=== PATIENT | female | born 1985 | race Caucasian/White ===

== ENCOUNTER 2017-04-11 17:58 | Emergency (ER) | payer OTHER ==
[~2017-04-11] VITALS: Ht 160 cm; Wt 79.2 kg
[2017-04-11 18:02] VITALS: TEMP 36.7; Ht 160 cm; Wt 79.2 kg
[2017-04-11] MEDS ORDERED: PRENTAB26 PO (18:53)
[2017-04-11 19:01] LABS: BASO % 0.3 %; BASO ABS # 0.03 K/uL (0-0.2); COMPLETE YES; EOS % 1.3 %; IG% 0.6 %; LYMPH % 28.8 %; LYMPH ABS # 2.58 K/uL (1.2-3.4); MEAN CELL VOLUME 87.4 fL (80-100); MEAN CORPUSCULAR HEMOGLOBIN 29.2 pg (25-34); MEAN CORPUSCULAR HGB CONC 33.4 g/dl (32-36); MEAN PLATELET VOLUME 10.6 fL (7.4-10.4); MONO % 9.3 %; NEUT % 59.7 %; PLATELET COUNT 205 K/uL (130-400); RED BLOOD COUNT 3.66 M/uL (4.2-5.4); WHITE BLOOD COUNT 8.97 K/uL (4.8-10.8)
[2017-04-11 19:18] LABS: BUN/CREATININE RATIO 16.2 (10-20); CREATININE 0.52 mg/dl (0.60-1.20); POTASSIUM 3.6 mmol/L (3.5-5.1)
--- NOTE | 2017-04-11 19:31 | DIAGNOSTIC IMAGING REPORT ---
BILATERAL LOWER EXTREMITY VENOUS DOPPLER CLINICAL HISTORY: Bilateral lower external pain and swelling. COMPARISON STUDY: No previous studies for comparison. TECHNIQUE: Sonography of the deep venous system of the bilateral lower extremities was performed. Compression and augmentation were evaluated. FINDINGS: The bilateral common femoral, superficial femoral and popliteal veins were compressible. Augmentation was normal. Flow was shown within the deep calf vessels. IMPRESSION: No evidence of deep venous thrombus within the bilateral lower extremities. Electronically signed by: Edgar Lyon M.D. 04/11/2017 7:29 PM Dictated Date/Time: 04/11/2017 7:29 PM
--- NOTE | 2017-04-11 19:36 | EMERGENCY ROOM VISIT NOTE ---
ED Visit Note First contact with patient: 18:09 CHIEF COMPLAINT: Leg swelling and pain HISTORY OF PRESENT ILLNESS: This 31-year-old female patient presents to the emergency department with concern of bilateral lower extremity swelling and left leg pain that started yesterday. The pain and swelling have developed gradually. There has been no injury to the leg, no fever, and no unusual activity which may have strained a muscle recently. There has not been a long period of immobilization or long car or plane ride recently. There is no history of blood clots in the veins of the legs. The patient is currently 35 weeks , states she has had some mild swelling in the legs for the past several weeks, but not this significant. She denies any chest pain, shortness of breath, palpitations, dizziness or syncope. She reports that she has been feeling the baby moving normally. REVIEW OF SYSTEMS: Head: No headache, injury or neck pain. Neurological: No headache, new changes in mental status, vertigo, focal weakness, numbness. Cardiac: No chest pain, diaphoresis, dyspnea on exertion, orthopnea, or palpitations. Respiratory: No cough, change in sputum, wheezes, hemoptysis, shortness of breath, or stridor. Gastrointestinal: No abdominal pain, blood in stools, diarrhea, loss of appetite, nausea, or vomiting. General: No fever or chills, fatigue, loss of appetite, or significant recent weight gain or loss. PMH: The patient is healthy; there is no significant medical or surgical history. SOCIAL HISTORY: Patient lives at home. She denies tobacco use, alcohol or recreational drug use. PHYSICAL EXAM: Vital Signs: Reviewed Nurse's notes. HEART: Regular rate and rhythm without murmurs, ectopy, gallops, or rubs. LUNGS: Clear to auscultation and breath sounds equal, no wheezes, rales, or rhonchi. ABDOMEN: Soft, non- tender, no hepatosplenomegaly, or masses. NEUROLOGICAL: Alert oriented, coheent. PRERL, EOMs full, gait normal. EXTREMITIES: No cyanosis, edema, joint tenderness or effusion. Pulses equal bilaterally. There is swelling of both calves and tenderness of the left calf. No erythema or warmth to palpation. No cords can be palpated and Gabrielle's sign is negative. There is no lymphangitic streaking. EMERGENCY DEPARTMENT COURSE: I examined the patient. Differential diagnosis includes DVT, leg swelling associated with , electrolyte imbalance. Labs show mild anemia which is consistent with , no other acute abnormalities. Ultrasound exam of the bilateral legs does not show any evidence of deep venous thrombosis or other abnormality. Patient was updated on all results and plan for discharge. She was encouraged to follow up with her PCP/OB provider. She was also given return precautions should her symptoms worsen, she verbalized understanding. The patient was discharged home in stable condition and ambulatory. Current/Historical Medications Scheduled Multivit/Min/Iron/Fol Ac/Pren ( Vitamin), 1 TAB PO BID Allergies Coded Allergies: No Known Allergies (Unverified , 04/11/17) Vital Signs Date Time Temp Pulse Resp B/P (MAP) Pulse Ox O2 Delivery O2 Flow Rate FiO2 04/11/17 20:07 80 18 124/69 96 04/11/17 18:02 36.7 89 18 134/88 97 Room Air Laboratory Results 04/11/17 18:45 Red Blood Count 3.66, Mean Corpuscular Volume 87.4, Mean Corpuscular Hemoglobin 29.2, Mean Corpuscular Hemoglobin Concent 33.4, Mean Platelet Volume 10.6, Neutrophils (%) (Auto) 59.7, Lymphocytes (%) (Auto) 28.8, Monocytes (%) (Auto) 9.3, Eosinophils (%) (Auto) 1.3, Basophils (%) (Auto) 0.3, Neutrophils # (Auto) 5.36, Lymphocytes # (Auto) 2.58, Monocytes # (Auto) 0.83, Eosinophils # (Auto) 0.12, Basophils # (Auto) 0.03 04/11/17 18:45 Test 04/11/17 18:45 White Blood Count 8.97 K/uL (4.8-10.8) Red Blood Count 3.66 M/uL (4.2-5.4) Hemoglobin 10.7 g/dL (12.0-16.0) Hematocrit 32.0 % (37-47) Mean Corpuscular Volume 87.4 fL (80-100) Mean Corpuscular Hemoglobin 29.2 pg (25-34) Mean Corpuscular Hemoglobin Concent 33.4 g/dl (32-36) Platelet Count 205 K/uL (130-400) Mean Platelet Volume 10.6 fL (7.4-10.4) Neutrophils (%) (Auto) 59.7 % Lymphocytes (%) (Auto) 28.8 % Monocytes (%) (Auto) 9.3 % Eosinophils (%) (Auto) 1.3 % Basophils (%) (Auto) 0.3 % Neutrophils # (Auto) 5.36 K/uL (1.4-6.5) Lymphocytes # (Auto) 2.58 K/uL (1.2-3.4) Monocytes # (Auto) 0.83 K/uL (0.11-0.59) Eosinophils # (Auto) 0.12 K/uL (0-0.5) Basophils # (Auto) 0.03 K/uL (0-0.2) RDW Standard Deviation 42.5 fL (36.4-46.3) RDW Coefficient of Variation 13.2 % (11.5-14.5) Immature Granulocyte % (Auto) 0.6 % Immature Granulocyte # (Auto) 0.05 K/uL (0.00-0.02) Anion Gap 9.0 mmol/L (3-11) Est Creatinine Clear Calc Drug Dose 157.6 ml/min Estimated GFR () 148.6 Estimated GFR (Non- 128.2 BUN/Creatinine Ratio 16.2 (10-20) Calcium Level 9.0 mg/dl (8.5-10.1) Departure Information Impression Primary Impression: Swelling of both lower extremities Dispostion Home / Self-Care Condition GOOD (due to due do) Referrals No Doctor, Assigned (PCP) Patient Instructions ED Leg Swelling Bilateral, My [facility] Additional Instructions You have been evaluated in the emergency department today for your leg pain and swelling. Ultrasound studies of your legs are negative for any blood clots. Stay off of your legs as much as possible and keep them elevated to help reduce swelling. Apply heat to the swollen, sore area frequently over the next 2 days. Gentle stretches to the leg for comfort. You may also try wearing compression stockings to legs. She put these on first thing in the morning when her swelling has gone down, and wear them throughout the day to help reduce swelling in your legs. Tylenol as needed for pain. Take as directed. Follow-up with her PCP or [employer] doctor if the symptoms do not improve. Please return to the emergency department for wrestling symptoms, including severe pain, increased swelling, red or hot to the touch, fevers/chills, or any other concerns.
[2017-04-11 20:07] VITALS: BP 124/69; PULSE 80; O2SAT 96
== END 2017-04-11 20:08 | disposition home or self-care (01) ==
LOC: C.EDB 17:59
DX: R60.0 Localized edema (principal); M79.605 Pain in left leg; Z33.1 Pregnant state, incidental

== ENCOUNTER 2017-04-14 12:58 | Outpatient (CLI) | payer OTHER ==
[~2017-04-14 12:58] MED LIST: PRENTAB26 PO
== END 2017-04-14 13:50 | disposition home or self-care (01) ==
LOC: C.LD 12:58 → C.OPB 12:58
PROVIDERS: ATTEND Obstetrics & Gynecology
DX: O36.8130 Decreased fetal movements, third trimester, not applicable or unspecified (principal); Z3A.00 Weeks of gestation of pregnancy not specified

== ENCOUNTER 2017-04-27 00:59 | Outpatient (CLI) | payer OTHER ==
[~2017-04-27] VITALS: Ht 160 cm; Wt 90.0 kg
[2017-04-27 03:51] VITALS: Ht 160 cm; Wt 90.0 kg
[2017-04-27] MEDS ORDERED: SERT25TA PO (03:53)
[2017-04-27] MEDS ORDERED: MoRPHine SULFATE 10 MG/ML CARP/VIAL SQ STA (04:29)
[2017-04-27] MEDS ORDERED: LACTATED RINGER'S 1000ML 1,000 ML IV SCH ×2 (04:30→04:45)
--- NOTE | 2017-04-27 06:35 | Discharge Instructions ---
Discharge Instructions Date of Service Apr 27, 2017. Admission Reason for Admission: Check Labor Discharge Discharge Diagnosis / Problem: Postcoital contractions Discharge Goals Goal(s): Continuing OB care Activity Recommendations Activity Limitations: as noted below Lifting Limitations: no more than 10 pounds Exercise/Sports Limitations: until after follow-up appointment May Resume Sexual Activity: after follow-up appointment Shower/Bathe: no limitations Driving or Machine Use: no limitations SPECIAL CARE INSTRUCTIONS: Call Doctor if: * Regular contractions every 5 minutes or greater than 5 contractions in one hour. * Bleeding * Water breaks or is leaking * Decreased movement * Fever >100.4 degrees F * Pain not relieved by routine measures or pain medication ordered. FOLLOW UP VISIT: Return to Labor and Delivery on for /call for appointment time . Follow-up Visit with: When: . Current Hospital Diet Patient's current hospital diet: Discharge Diet Recommended Diet: Regular Diet Pending Studies Studies pending at discharge: no Work Instructions Return To Work: 3 days Lifting Limitations: no more than 10 pounds Medical Emergencies . Who to Call and When: Medical Emergencies: If at any time you feel your situation is an emergency, please call 911 immediately. . Non-Emergent Contact Non-Emergency issues call your: Surgeon, Specialist Call Non-Emergent contact if: temperature is above 100.5, your pain is not controlled, your pain is worsening . . "Provider Documentation" section prepared by Lance Mcintosh. . VTE Core Measure Inpt VTE Proph given/why not?: Treatment not indicated
== END 2017-04-27 07:41 | disposition home or self-care (01) ==
LOC: C.OPB 00:59 → C.LD 01:00 → C.OPB 07:41
PROVIDERS: ATTEND Obstetrics & Gynecology
DX: O62.9 Abnormality of forces of labor, unspecified (principal); O99.343 Other mental disorders complicating pregnancy, third trimester; F32.9 Major depressive disorder, single episode, unspecified; Z3A.37 37 weeks gestation of pregnancy

== ENCOUNTER 2017-05-06 01:42 | Inpatient (IN) | payer OTHER ==
[~2017-05-06] VITALS: Ht 160 cm; Wt 79.4 kg
[~2017-05-06 01:42] MED LIST changes: +SERT25TA PO
[2017-05-06] MEDS ORDERED: LACTATED RINGER'S 1000ML 1,000 ML IV PRN (02:12)
[2017-05-06] MEDS ORDERED: LACTATED RINGER'S 1000ML 1,000 ML IV SCH (02:12)
[2017-05-06 02:29] VITALS: Ht 160 cm; Wt 79.4 kg
[2017-05-06 02:35] LABS: HEMATOCRIT 33.6 % (37-47); MEAN CELL VOLUME 86.8 fL (80-100); MEAN CORPUSCULAR HEMOGLOBIN 28.9 pg (25-34); MEAN CORPUSCULAR HGB CONC 33.3 g/dl (32-36); PLATELET COUNT 210 K/uL (130-400); RED BLOOD COUNT 3.87 M/uL (4.2-5.4); WHITE BLOOD COUNT 9.72 K/uL (4.8-10.8)
[2017-05-06] MEDS ORDERED: BUPIVACAINE 0.25% 30 ML VIAL ONE (02:35)
[2017-05-06] MEDS ORDERED: FENTANYL CITRATE INJ 50 MCG/1 ML 2 ML VIAL ONE (02:36)
[2017-05-06] MEDS ORDERED: EpHEDrine SULFATE INJ 50 MG/ML AMP ONE (02:36)
[2017-05-06] MEDS ORDERED: FENTANYL 2MCG/ML ROPIV 1.25MG/ML 100ML BAG EPI ONE (02:36)
[2017-05-06] MEDS ORDERED: BUTORPHANOL TARTRATE 1 MG/ML VIAL ONE (03:02)
[2017-05-06] MEDS ORDERED: BUTORPHANOL TARTRATE 1 MG/ML VIAL IV PRN (03:15)
[2017-05-06] MEDS ORDERED: NALOXONE HCL INJ 1 MG in SODIUM CHLORIDE 0.9% 1000ML 1,000 ML IV PRN (04:49)
[2017-05-06] MEDS ORDERED: LACTATED RINGER'S 1000ML 500 ML IV PRN ×2 (04:49→07:15)
[2017-05-06] MEDS ORDERED: DiphenhydrAMINE HCL 50 MG/ML VIAL IV PRN (05:00)
[2017-05-06] MEDS ORDERED: EpHEDrine SULFATE INJ 50 MG/ML AMP IV PRN (05:00)
[2017-05-06] MEDS ORDERED: ONDANSETRON INJ 2 MG/ML 2 ML VIAL IV PRN (05:00)
[2017-05-06] MEDS ORDERED: NALOXONE HCL INJ 0.4 MG/1 ML VIAL/CARP IV PRN (05:00)
[2017-05-06] MEDS ORDERED: NALBUPHINE HCL INJ 10 MG/ML AMP IV PRN (05:00)
[2017-05-06] MEDS ORDERED: FENTANYL 2MCG/ML ROPIV 1.25MG/ML 100ML BAG EPI PRN (05:00)
[2017-05-06] MEDS ORDERED: OXYTOCIN 30 UNITS/500ML NSS IV PRN ×2 (07:15→10:15)
[2017-05-06] MEDS ORDERED: ACETAMINOPHEN 325 MG TAB PO PRN (10:15)
[2017-05-06] MEDS ORDERED: LANOLIN OINT EXT PRN ×2 (10:15)
[2017-05-06] MEDS ORDERED: SUPERCREAM 0.870 % 15GM JAR EXT PRN (10:15)
[2017-05-06] MEDS ORDERED: ACETAMINOPHEN/CODEINE 300/30MG TAB PO PRN ×2 (10:15)
[2017-05-06] MEDS ORDERED: HYDROCORTISONE ACETATE 25 MG SUPP PR PRN (10:15)
[2017-05-06] MEDS ORDERED: BENZOCAINE 20% AER SPR 82.5 GM CAN EXT PRN (10:15)
[2017-05-06] MEDS ORDERED: OXYCODONE/ACETAMINOPHEN 5-325 TAB PO PRN (10:15)
--- NOTE | 2017-05-06 10:56 | DELIVERY SUMMARY ---
DATE OF OPERATION: 05/06/2017 DELIVERY NOTE The patient delivered a live male in left occiput anterior presentation. The was delivered as a compound presentation as well with the right. was delivered and placed on the mother's abdomen. Cord was clamped and cut after 2 minutes. Cord gases obtained. Cord blood was obtained. Placenta was spontaneously delivered. Inspection of the placenta showed a 3-vessel cord and appeared grossly normal. Inspection of the perineum showed a second-degree midline laceration as well as a right vulvar tear. Both were repaired with 2-0 and 3-0 Vicryl in layers. Rectal exam post repair showed good sphincter tone. No sutures are palpated in the rectum. ESTIMATED BLOOD LOSS: 400 mL. All instruments are removed from the vagina and accounted for x2 including sponges, needles and retractors. Baby and mother are doing well. The 's weight and Apgars are in the pediatric records. I attest to the content of the Intraoperative Record and any orders documented therein. Any exception s are noted below.
[2017-05-06 13:00] VITALS: BP 131/81; PULSE 82; TEMP 36.7
[2017-05-06 15:25] VITALS: BP 103/64; PULSE 70; TEMP 36.8
[2017-05-06] MEDS: IBUPROFEN 600 MG TAB PO PRN (17:48)
[2017-05-06 19:45] VITALS: BP 125/74; PULSE 74; TEMP 36.7; O2SAT 97
[2017-05-06] MEDS: DOCUSATE SODIUM 100 MG CAP PO SCH (19:49)
[2017-05-06 23:00] VITALS: BP 125/82; PULSE 65; TEMP 36.4; O2SAT 98
[2017-05-07 03:45] VITALS: BP 110/74; PULSE 75; TEMP 36.7; O2SAT 96
[2017-05-07] MEDS: IBUPROFEN 600 MG TAB PO PRN ×3 (03:51→19:37)
--- NOTE | 2017-05-07 07:06 | HISTORY & PHYSICAL EXAMINATION ---
DATE OF ADMISSION: 05/06/2017 HISTORY OF PRESENT ILLNESS: This is a 31-year-old G3, P2, EDC is 05/12/2017, making her 39 weeks and 1 day today, presented to labor and delivery with contractions. She was examined by nurse and found to be 4 cm dilated. She was, therefore, admitted for labor. On arrival, she had no shortness of breath, no chills, no fever, no rupture of membranes, no bloody show. COURSE: Has been unremarkable. LABORATORY DATA: Blood type A positive, antibody negative, rubella immune, GBS negative. PAST MEDICAL HISTORY: None. PAST SURGICAL HISTORY: None. SOCIAL HISTORY: The patient denied tobacco, drug or alcohol use. OBSTETRICAL/GYNECOLOGIC HISTORY: The patient delivered a live in ____ and in 03/2013. FAMILY HISTORY: Noncontributory. PHYSICAL EXAMINATION: GENERAL: Well-developed, well-nourished white female in labor discomfort. HEART: S1, S2, regular rhythm and rate. LUNGS: Clear to auscultation bilaterally. ABDOMEN: Gravid. EXTREMITIES: No cyanosis, clubbing or edema. PELVIC: On admission, was 4 cm dilated. ASSESSMENT AND PLAN: A 31-year-old G3, P2, at 39+ weeks, in labor. The patient is admitted and we anticipate vaginal delivery.
[2017-05-07 07:29] VITALS: BP 109/72; PULSE 70; TEMP 36.6; O2SAT 97
--- NOTE | 2017-05-07 07:36 | OB/GYN Progress Note ---
REGIONAL FACILITIES MANAGER Progress Note Date of Service May 07, 2017. Subjective conversation w/ patient Ambulation: ambulating normally Voiding: no voiding problems Passing Gas: Yes Diet Tolerance: Regular Diet Lochia: Small Feeding Type: Breast Feeding Pain: 09/29 Notes: Doing well, no concerns. Pain well controlled. Tolerating regular diet, +flatus , -BM. Ambulating without difficulty. Lochia decreasing. Objective Vital Signs Date Time Temp Pulse Resp B/P (MAP) Pulse Ox O2 Delivery O2 Flow Rate FiO2 05/07/17 07:29 36.6 70 20 109/72 (84) 97 Room Air 05/07/17 03:45 36.7 75 18 110/74 (86) 96 Room Air 05/06/17 23:00 Room Air 05/06/17 23:00 36.4 65 16 125/82 (96) 98 Room Air 05/06/17 19:45 36.7 74 16 125/74 (91) 97 Room Air 05/06/17 19:45 Room Air 05/06/17 15:25 Room Air 05/06/17 15:25 36.8 70 18 103/64 (77) Room Air 05/06/17 13:00 36.7 82 20 131/81 (98) Physical Exam General Appearance: WELL-APPEARING Respiratory/Chest: chest non-tender Cardiovascular: regular rate, rhythm Abdomen: normal bowel sounds, soft Fundus: Firm Extremities: normal range of motion, non-tender Laboratory Results Last 24 Hours Test 05/07/17 05:58 Hemoglobin 10.2 g/dL Hematocrit 31.0 % Assessment and Plan Post- Day Number: 1 Continue Routine Care: -Continue routine care -Anticipate d/c home tomorrow
[2017-05-07] MEDS: FERROUS SULFATE 325 MG TAB PO SCH (08:18)
[2017-05-07] MEDS: PRENATAL VITAMIN TAB PO SCH (08:18)
[2017-05-07] MEDS: DOCUSATE SODIUM 100 MG CAP PO SCH ×2 (08:18→19:37)
[2017-05-07] MEDS: SERTRALINE HCL 50 MG TAB PO SCH (08:34)
[2017-05-07 16:20] VITALS: BP 128/84; PULSE 72; TEMP 36.7; O2SAT 97
[2017-05-07 19:45] VITALS: BP 127/85; PULSE 80; TEMP 36.7; O2SAT 98
[2017-05-07] MEDS ORDERED: BISACODYL 5 MG TABEC PO SCH (20:00)
[2017-05-07 23:45] VITALS: BP 140/80; PULSE 78; TEMP 36.5
[2017-05-08 06:39] LABS: HEMATOCRIT 28.9 % (37-47); MEAN CELL VOLUME 88.1 fL (80-100); MEAN CORPUSCULAR HEMOGLOBIN 29.3 pg (25-34); MEAN CORPUSCULAR HGB CONC 33.2 g/dl (32-36); PLATELET COUNT 192 K/uL (130-400); RED BLOOD COUNT 3.28 M/uL (4.2-5.4); WHITE BLOOD COUNT 8.12 K/uL (4.8-10.8)
[2017-05-08] MEDS ORDERED: BISACODYL 10 MG SUPP PR PRN (07:00)
[2017-05-08] MEDS ORDERED: MTR600X PO (07:16)
--- NOTE | 2017-05-08 07:17 | Discharge Instructions ---
Discharge Instructions Date of Service May 08, 2017. Admission Reason for Admission: Check Labor Discharge Discharge Diagnosis / Problem: term pregnancyndelivered Discharge Goals Goal(s): Routine recovery after delivery Activity Recommendations Activity Limitations: as noted below Lifting Limitations: no more than 10 pounds Exercise/Sports Limitations: gradually increase as tolerated May Resume Sexual Activity: after follow-up appointment Shower/Bathe: no limitations Driving or Machine Use: resume 3 days after discharge . Instructions / Follow-Up Instructions / Follow-Up ACTIVITY RECOMMENDATIONS: * Gradual return to full activity over the next 2-3 weeks. * No lifting - nothing heavier than baby over the next 2-3 weeks. * Do not engage in vigorous exercise, sexual activity or sports until cleared by your physician. * Do not drive or operate any motorized equipment until cleared by your physician. * You may shower/bathe daily. BREAST CARE: If you are not breast feeding: * Wear a supportive bra 24 hours a day for one to two weeks. * Avoid stimulating your breasts and nipples as much as possible during the first few weeks after delivery. * When taking a shower, have the warm water hit your back, not breasts. * When your breasts feel full, apply ice packs. Usually three to four times a day helps ease the discomfort. * Take a mild pain medication (Tylenol/Motrin) when you are uncomfortable. If breast feeding: * Use breast milk to lubricate nipples. Lansinoh cream may be used for sore nipples. You do not need to remove cream prior to breast feeding. If using a different brand of cream, check the label for directions regarding removal of cream prior to nursing. * Wear a supportive bra. * If having problems with breasts or breast feeding, call a consultant luxury and auto. vice president [employer] (ex ) or your health care provider. EPISIOTOMY CARE: After delivery, if you have an episiotomy (stitches), the following steps will ease discomfort and aid healing. * For the first 24 hours after delivery, place ice packs next to your episiotomy to help reduce swelling. * After the first 24 hour-period, sitz baths, either portable or in the tub, are suggested. A shower with a shower arm sprayed over the episiotomy may be comforting. * Viki care should be done after each voiding and bowel movement. Squirt warm water from a plastic bottle over the perineum (region of the body between the anus and urinary opening) and pat dry. * Use Dermoplast to ease discomfort. Shake container. [place] directly over the episiotomy. * Place a Tucks on a clean sanitary pad next to your episiotomy. OVER THE COUNTER MEDICATION: * For discomfort or pain, you may use Acetaminophen (Tylenol), Ibuprofen (Advil ), or Naproxen (Aleve) following the package directions. * For constipation you may use Colace following the package directions. SPECIAL CARE INSTRUCTIONS: When you are discharged from the hospital, it is important for you to follow the instructions listed below: * During the first week at home, you should be able to care for yourself and your baby. In addition, the usual light household activities are encouraged. * Limit your activities to the way you feel. Do not try to clean the house or move furniture. Be sensible. * If you actively engage in sports and have done so up until the time of your delivery, you may resume these activities as soon as you feel able. This may take up to one month or even longer. Use good judgment. * Continue to take your vitamins for at least six weeks after the of your baby. * Your diet need not be limited unless you were on a special diet before your delivery. Breast-feeding mothers need around 2500 calories per day and at least 64-80 ounces of fluid per day (8 to 10 glasses). * You should eat foods from the four major food groups. Crash diets or fad diets are to be avoided. Eating lean meats, fresh fruits and vegetables, low-fat dairy products, high fiber foods and a regular exercise program, will help you get back to your pre- weight without putting your health at risk. * Constipation is sometimes a problem after delivery. Take a mild laxative as needed. If breast feeding, Milk of Magnesia is acceptable to use. You may use a suppository or Fleets enema if no episiotomy. * A daily shower or tub bath is suggested. Be sure to thoroughly and gently dry the perineum. * A bloody vaginal discharge will usually continue until around four weeks post . A small amount of bleeding may continue for as long as six weeks. Vaginal discharge changes from the bright red bleeding after delivery to pink then brownish and finally yellowish-pink before becoming white and disappearing. * Bleeding may increase with activity. Your first period may come in 4-8 weeks. If you are breast feeding, your period may be delayed even longer. * Reinholds (sex) can begin whenever both you and your partner feel comfortable and do not have any form of genital infection. It is recommended that you wait until after your return appointment and discuss with your physician. If you have questions, please talk to your health care practitioner. A condom should be used to prevent infection and . * Foreplay, gentle intercourse and lubrication is very important the first several times to prevent pain. A water-based lubricant such as K-Y jelly or Astroglide may be used. * Tampons may be used six weeks after delivery. * Douching should be avoided for 6 weeks after delivery. * If you have RH negative blood and your baby is RH positive, you will receive RHOGAM by injection prior to discharge. The nurse will give you a card to keep with you that has the date and place that you received RHOGAM after delivery. * During your care, you had a Rubella screen done to check for the presence of rubella antibodies in your blood. If your test was negative, you will receive a Rubella vaccine prior to discharge. This vaccine may cause a fever, soreness at the injection site and flu-like symptoms. If these symptoms persist, notify your health care practitioner. is not advised for three months after a Rubella vaccine. There is a higher chance of having a baby with defects if conceived within three months of getting the vaccine. * If you were discharged 24 hours from delivery or before 48 hours: Visiting nurses will come to your home 48 hours after discharge to assess you and your baby. The visiting nurse will meet with you while you are in the hospital to arrange a time and get directions to your home. * Verbalizes understanding of car seat law as reviewed with patient nursing. * Car Seat hand-out given and reviewed with patient by nursing. * Shaken baby information reviewed with patient by nursing. Call you doctor if: * Heavy bleeding (saturating several pads an hour) or passing clots the size of your fist. * A fever >101 degrees F (38.3 degrees C) on two occasions four hours apart and/or chills. * Unusual pain in the pelvic or vaginal areas. * "Baby Blues" lasting longer than two weeks. If you have any questions or concerns, call your health care practitioner at . FOLLOW-UP VISIT: * Please call the office at to schedule a 6 week examination. It is important you keep this appointment. * It is important for you to make arrangements for either yearly or twice yearly check-ups thereafter. Current Hospital Diet Patient's current hospital diet: Regular OB Diet Discharge Diet Recommended Diet: Regular OB Diet Pending Studies Studies pending at discharge: no Medical Emergencies . Who to Call and When: Medical Emergencies: If at any time you feel your situation is an emergency, please call 911 immediately. . Non-Emergent Contact Non-Emergency issues call your: Primary Care Provider . . "Provider Documentation" section prepared by Shekhar Garland. . VTE Core Measure Inpt VTE Proph given/why not?: SCD's
[2017-05-08 07:30] VITALS: BP 132/85; PULSE 74; TEMP 36.6; O2SAT 98
[2017-05-08 07:49] VITALS: BP 132/85; PULSE 80; TEMP 36.6; O2SAT 97
--- NOTE | 2017-05-08 08:11 | OB/GYN Progress Note ---
LAUNDRY CLERK Progress Note Date of Service May 08, 2017. Subjective conversation w/ patient, physical exam Ambulation: ambulating normally Voiding: no voiding problems Passing Gas: Yes Diet Tolerance: Regular Diet Lochia: Small Feeding Type: Breast Feeding Objective Vital Signs Date Time Temp Pulse Resp B/P (MAP) Pulse Ox O2 Delivery O2 Flow Rate FiO2 05/08/17 07:49 36.6 80 18 132/85 (101) 97 Room Air 05/08/17 07:30 98 Room Air 05/08/17 07:30 36.6 74 18 132/85 (101) 98 Room Air 05/07/17 23:45 Room Air 05/07/17 23:45 36.5 78 20 140/80 (100) Room Air 05/07/17 19:45 Room Air 05/07/17 19:45 36.7 80 18 127/85 (99) 98 Room Air 05/07/17 16:20 97 Room Air 05/07/17 16:20 36.7 72 18 128/84 (99) 97 Room Air Physical Exam General Appearance: WELL-APPEARING, NO APPARENT DISTRESS Abdomen: non tender, soft Fundus: Firm Extremities: non-tender, normal inspection, no pedal edema, no calf tenderness Laboratory Results Last 24 Hours Test 05/08/17 06:27 White Blood Count 8.12 K/uL Red Blood Count 3.28 M/uL Hemoglobin 9.6 g/dL Hematocrit 28.9 % Mean Corpuscular Volume 88.1 fL Mean Corpuscular Hemoglobin 29.3 pg Mean Corpuscular Hemoglobin Concent 33.2 g/dl RDW Standard Deviation 45.6 fL RDW Coefficient of Variation 14.3 % Platelet Count 192 K/uL Mean Platelet Volume 10.0 fL Assessment and Plan Post- Day Number: 2 Continue Routine Care: discharged
[2017-05-08] MEDS: FERROUS SULFATE 325 MG TAB PO SCH (08:12)
[2017-05-08] MEDS: PRENATAL VITAMIN TAB PO SCH (08:12)
[2017-05-08] MEDS: DOCUSATE SODIUM 100 MG CAP PO SCH (08:12)
[2017-05-08] MEDS: SERTRALINE HCL 50 MG TAB PO SCH (08:13)
[2017-05-08 10:50] VITALS: BP_DIAS 85; PULSE 80; TEMP 36.6
== END 2017-05-08 10:50 | disposition home or self-care (01) | DRG 775 ==
LOC: C.LD 01:42 → C.OPB 01:42 → C.LD 02:15 → C.OPB 02:15 → C.OBG 13:06
PROVIDERS: ADMIT Obstetrics & Gynecology; ATTEND Obstetrics & Gynecology
PROC: 10E0XZZ Delivery of Products of Conception, External Approach (ICD-10-PCS; principal; 2017-05-06)
PROC: 0KQM0ZZ Repair Perineum Muscle, Open Approach (ICD-10-PCS; principal; 2017-05-06)
DX: O70.1 Second degree perineal laceration during delivery (principal); O69.3XX0 Labor and delivery complicated by short cord, not applicable or unspecified; Z3A.39 39 weeks gestation of pregnancy; Z37.0 Single live birth

== ENCOUNTER → 2017-11-27 | Outpatient (CLI) | payer OTHER ==
[~2017-11-27] MED LIST changes: +MTR600X PO
[2017-11-27 12:47] LABS: ALBUMIN 3.8 gm/dl (3.4-5.0)
== END | disposition home or self-care (01) ==
LOC: C.LAB 11:16
PROVIDERS: ATTEND Family Medicine
DX: E66.8 Other obesity (principal)